=== PATIENT | male | born 1980 | race Caucasian/White ===

== ENCOUNTER 2016-05-29 18:18 | Emergency (ER) | payer MEDICAID, OTHER ==
[2016-05-29] MEDS ORDERED: Metoclopramide 10 MG/2 ML SDV IVPUSH ONE (18:54)
[2016-05-29] MEDS ORDERED: Sodium Chloride 0.9% 1,000 ML IV ONE (18:54)
[2016-05-29] MEDS ORDERED: HYDROmorphone 2 MG/ML SDV IVPUSH ONE (18:55)
[2016-05-29] MEDS ORDERED: diphenhydrAMINE 50 MG/ML SDV IVPUSH ONE (18:55)
[2016-05-29] MEDS ORDERED: Ketorolac 30 MG/ML SDV IVPUSH ONE (18:56)
[2016-05-29] MEDS ORDERED: Sodium Chloride 0.9% 10 ML Syringe FLUSH PRN (19:09)
[2016-05-29] MEDS ORDERED: Amoxicillin 500 MG Cap PO ONE (19:55)
[2016-05-29] MEDS ORDERED: Ketorolac 10 MG Tab PO ONE (19:55)
[2016-05-29] MEDS ORDERED: diphenhydrAMINE 50 MG Cap PO ONE (19:59)
[2016-05-29 20:24] VITALS: BP 122/87
--- NOTE | 2016-05-30 09:19 | CT ---
PRELIMINARY REPORT: INDICATION: Previous CVA. CT HEAD WITHOUT CONTRAST: Serial contiguous 2.5 and 5-mm sections were obtained through the brain 05/29/2016 and compared with 07/25/2015, revealing thickening of the linings of multiple ethmoidal air cells and minimally the right frontal air cell, as well as moderately the left maxillary sinus and to a milder degree the right maxillary sinus and also as well to a mild degree the left sphenoidal air cell. The findings may represent an allergic sinusitis or possibly acute sinusitis. However, no air-fluid levels were identified. Mastoid air cells appear to be fairly well aerated. No definite cranial abnormality was seen. No shift of midline structures or ventricles abnormalities were identified. No definite abnormal areas of density were identified - no bleeding site or hematoma was seen. IMPRESSION: 1. No definite acute abnormality intracranially. 2. Question sinusitis, especially frontal portion of the ethmoidal air cells. Report was called to Dr. Rosario at 1920 hours, 05/29/2016. , 1923 , [id number] FINAL REPORT: INDICATION: Previous CVA. CT HEAD WITHOUT CONTRAST: Serial contiguous 2.5 and 5-mm sections were obtained through the brain 05/29/2016 and compared with 07/25/2015, revealing thickening of the linings of multiple ethmoidal air cells and minimally the right frontal air cell, as well as moderately the left maxillary sinus and to a milder degree the right maxillary sinus and also as well to a mild degree the left sphenoidal air cell. The findings may represent an allergic sinusitis or possibly acute sinusitis. However, no air-fluid levels were identified. Mastoid air cells appear to be fairly well aerated. No definite cranial abnormality was seen. No shift of midline structures or ventricles abnormalities were identified. No bleeding site or hematoma was identified. In the posterior frontal operculum on the right, there is an indistinct area of low-density compatible with previous infarct in that area, seen on 07/25/2015 MRI and to a lesser extent CT of the same date. No extension of the abnormality in that area is identified compared with the previous MRI. No other abnormal areas of density were identified. IMPRESSION: 1. No acute intracranial abnormality. 2. Area of abnormality in the right posterior frontal operculum compatible with previous infarct diagnosed on MRI 07/25/2015. 3. Question the possibility of sinusitis, especially frontal portion of ethmoidal air cells. Report was called to Dr. Rosario at 1920 hours, 05/29/2016. Total Exam DLP = 562.87 mGy-cm. MTDD
--- NOTE | 2016-06-01 09:15 | ER ---
DATE SEEN: 05/29/2016 TIME SEEN: The patient was seen at 1824 hours. HISTORY OF PRESENT ILLNESS: [facility] called at approximately 1800 hours, stating that the patient is having a stroke and that he will be coming in for further evaluation. The patient was seen at 1824 hours, went to CT completed at 1845 hours. The following symptoms were noted: At 1100 hours, he had onset of migraine headache. He had noon dinner and then had a nap for a short period of time. He got up to watch TV. At 1600 hours, the patient had taken a shower and had a sudden onset of 8/10 headache, resulting in blurring of his left vision and left non radiating retro- orbital pain. PAST MEDICAL HISTORY: He has a past medical history on 07/25/2015, right small frontal operculum tiny MRI documented stroke without a new bleed or CT changes, but only MRI changes, and thickening of the frontal and ethmoid sinuses and was transferred to [place]. Today, he noted flashing lights in his left eye when he closed them. This occurred for a transient period of 2 to 3 seconds and then relented. In addition to that, the patient has known right facial droop, left hemiparesis, left hemisensory changes that were present since 07/25/2015. These are baseline changes and have not changed on the basis of the patient's history. The patient has known hypertension, has not been treated since October of 2015, because "he did not have any money." The patient has not used methamphetamine for a month. At that time, he was found by police with methamphetamine paraphernalia and has been sentenced to shelter for 60 days. The patient is a smoker, a pack of cigarettes per day. PAST SURGICAL HISTORY: Negative. ALLERGIES: Negative. MEDICATIONS: Negative. REVIEW OF SYSTEMS: Otherwise negative. HEENT: Poor teeth (related to methamphetamine use, which he denies, but I find the veracity of this statement is limited). NECK: No neck stiffness. CARDIAC: Negative cardiorespiratory symptoms. No chest pain or shortness of breath. He does have frequent congested cough, that is not new. No associated fever. ABDOMEN: Denies abdominal pain, diarrhea, constipation, blood in the stool, or black tarry stools. : Denies frequency, urgency, or dysuria. He denies difficulty passing urine or bladder control problems. MUSCULOSKELETAL: He has musculoskeletal weakness, hemiparesis and hemisensory dysesthesia, hypoesthesia in left upper and lower extremity, which is baseline and unchanged. NEUROLOGIC: Denies recent fall or seizures. PHYSICAL EXAMINATION: VITAL SIGNS: Blood pressure 126/86, heart rate 89, respirations 14, oxygen saturation 98%. GENERAL: Alert man, who is in marked distress. He is writhing about. He has marked sensitivity to light. Marked photophobia. Mild phonophobia. He wants the lights off. The room was darkened. HEENT: He states he has marked blurring of his left eye. Right eye is good. No change in previous baseline left hemiparesis, left sensory changes, dysesthesia. PERRLA intact. Marked sensitivity to light. Appropriate response of pupils. Hearing is good. Pharynx without abnormality. Very significant carious enamel dysplasia and disruption of his teeth. Gag in place. NECK: Supple. Nontender. No bruits in neck. LUNGS: Clear to auscultation, but has a very congested cough intermittently. HEART: S1, S2. No murmur. ABDOMEN: Soft. No guarding. No abdominal discomfort. EXTREMITIES: Without abnormality. No pedal edema. NEUROLOGIC: Abnormal, he has a right facial droop. It is mild. Mild right nasolabial fold changes. Tongue is midline. Uvula midline. Left hemiparesis. Mild pronator drift, 3 cm, left arm compared to right. Mild tremor of both hands with an essential tremor on right, slow tremor. Moderate left upper and lower extremity weakness 3+/5+, but does not drift with gravity. Moderate decreased dorsiflexion and plantar flexion strength of the left foot. Sensory testing moderate. Decreased sensation in left upper and lower extremity. IMAGING: Stat CAT scan performed, no new stroke noted. Old ischemic infarct in right frontal operculum noted by MRI of 07/25/2015, which is difficult for the radiologist to see any changes on the CT scan that occurred at that time. No new changes in the CT since then. Has mild ethmoid membrane thickening, which was also present on the ethmoid sinus on 07/25/2015. ASSESSMENT: 1. Migraine. 2. 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 3. Chronic smoker. 4. Severe dental disruption. 5. Methamphetamine abuse and use history. 6. Jailed for being apprehended with methamphetamine paraphernalia. 7. History of hypertension, but presently blood pressure is stable. 8. Mild leukocytosis with approximately 80% PMNs. Report is pending, but just quick read suggests normal INR, PTT. Abnormal complete metabolic panel, hyponatremia, decreased CO2, and elevated glucose. Mild elevated AST and ALT. FURTHER DIAGNOSES: 1. Possible mild hepatitis, etiology indeterminate, probably related to his drug abuse history. 2. Mild hyponatremia. 3. Mild neutrophilic leukocytosis. 4. Ethmoid sinusitis. PLAN: 1. The patient will be treated with Amoxil, to treat an ethmoid sinusitis 500 mg t.i.d. for 10 days. 2. The patient received in the ED Reglan 10 mg, Benadryl 50 mg, Toradol 30 mg IV, and 1000 mL normal saline stat. His headache relented to 6/10. The patient was dismissed to return to the shelter and with orders: At 0310 hours, repeat the dose of Toradol 10 mg, Reglan 10 mg, 1000 mg of Tylenol, and 50 mg Benadryl. If he is sleeping, the staff is to forego this dose, otherwise take q.6 hours the same medicines as needed for onset of migraine. 3. Follow up with the doctor in a week. 4. Treat with Amoxil 500 mg t.i.d., #20 tablets dispensed from the ED. Therefore, he will need 10 more tablets in a prescription to complete a 10- day course of Amoxil for ethmoid sinusitis. /[id number] NOLAN/CARMEN RODRIGUEZ
== END 2016-05-29 20:23 ==
LOC: FB.ED 18:18
DX: G43.909 Migraine, unspecified, not intractable, without status migrainosus (principal); H53.8 Other visual disturbances; F15.10 Other stimulant abuse, uncomplicated; I10 Essential (primary) hypertension; D72.829 Elevated white blood cell count, unspecified; F17.210 Nicotine dependence, cigarettes, uncomplicated; Z86.73 Personal history of transient ischemic attack (TIA), and cerebral infarction without residual deficits
CPT/HCPCS: 36415; 70450; 80053; 85025; 85610; 85730; 93005; 96361; 96374; 96375; 99284; A9270; J1200; J1885; J2765; J7040; J7050

== ENCOUNTER 2022-11-03 04:16 | Emergency (ER) | payer SELFPAY ==
[2022-11-03] MEDS ORDERED: LORazepam 2 MG/ML SDV ONE (04:29)
[2022-11-03] MEDS ORDERED: Sodium Chloride 0.9% 10 ML Syringe FLUSH PRN (05:20)
[2022-11-03] MEDS ORDERED: Sodium Chloride 0.9% 1,000 ML IV SCH (05:30)
[2022-11-03 05:39] LABS: HEMATOCRIT 38.8 % (38.3-50.1); MEAN CORPUSCULAR HEMOGLOBIN 29.1 pg (27.0-33.3); MEAN CORPUSCULAR HGB CONC 33.6 g/dL (28.7-35.3); MEAN CORPUSCULAR VOLUME 86.4 fL (80.8-98.7); RED BLOOD CELL COUNT 4.49 x10(6)uL (3.90-5.90); RED CELL DISTRIBUTION WIDTH 14.4 % (12.4-15.0); WHITE BLOOD CELL COUNT,WBC 8.7 x10-3/uL (3.2-10.1)
[2022-11-03 05:49] LABS: BLOOD UREA NITROGEN,BUN 14 mg/dL (7-18); BUN/CREATININE RATIO 17.5 (9-20); CALCIUM 8.6 mg/dL (8.6-10.2); CARBON DIOXIDE,CO2 29 mmol/L (21-32); CHLORIDE,CL 107 mmol/L (100-110); CREATININE 0.8 mg/dL (0.70-1.30); ESTIMATED GFR 115 mL/min (>60); GLUCOSE RANDOM 93 mg/dL (80-116); POTASSIUM,K 3.7 mmol/L (3.5-5.3); SODIUM,NA 141 mmol/L (135-145)
[2022-11-03 05:55] LABS: A/G RATIO 1.2; ALANINE AMINOTRANSFERASE,ALT 38 U/L (12-36); ALBUMIN 3.4 g/dL (3.5-5.2); ALKALINE PHOSPHATASE 104 IU/L (56-112); ASPARTATE AMNIOTRANSFERASE,AST 25 IU/L (5-25); BILIRUBIN TOTAL 0.8 mg/dL (0.1-1.3); PROTEIN TOTAL,TP 6.2 g/dL (6.0-8.0); SALICYLATE 2.2 mg/dL (<2.8)
[2022-11-03 06:02] LABS: ACETAMINOPHEN < 2 ug/mL (<2)
[2022-11-03 06:27] LABS: ETHANOL BLOOD MEDICAL < 0.03 % (<0.03); TSH ULTRASENSITIVE 0.95 IU/mL (0.36-3.74)
[2022-11-03 09:12] LABS: BILIRUBIN,URINE NEGATIVE (NEGATIVE); GLUCOSE,URINE NORMAL (NORMAL); KETONES,URINE NEGATIVE (NEGATIVE); LEUKOCYTE ESTERASE,URINE NEGATIVE (NEGATIVE); NITRITE,URINE NEGATIVE (NEGATIVE); OCCULT BLOOD,URINE NEGATIVE (NEGATIVE); PROTEIN,URINE NEGATIVE (NEGATIVE); UROBILINOGEN,URINE NORMAL (NEGATIVE)
[2022-11-03 09:19] LABS: COLOR,URINE YELLOW (YELLOW)
[2022-11-03 09:20] LABS: APPEARANCE,URINE CLEAR (CLEAR); BACTERIA,URINE FEW (NS); SQUAMOUS EPITHELIAL CELLS,UR FEW (NS,R,O); WBC,URINE 0-5 (0-5)
[2022-11-03 09:21] LABS: AMPHETAMINES SCREEN, URINE POSITIVE (NEGATIVE); BENZODIAZEPINES SCREEN,URINE POSITIVE (NEGATIVE); METHAMPHETAMINE SCREEN, URINE POSITIVE (NEGATIVE); THC SCREEN,URINE POSITIVE (NEGATIVE)
[2022-11-03] MEDS ORDERED: LORazepam 2 MG/ML SDV IVPUSH ONE (09:21)
[2022-11-03 09:22] LABS: BARBITURATE SCREEN,URINE NEGATIVE (NEGATIVE); METHADONE SCREEN, URINE NEGATIVE (NEGATIVE); OXYCODONE SCREEN,URINE NEGATIVE (NEGATIVE); PROPOXYPHENE SCREEN,URINE NEGATIVE (NEGATIVE)
[2022-11-03 09:23] LABS: BUPRENORPHINE SCREEN,URINE NEGATIVE (NEGATIVE)
[2022-11-03] MEDS ORDERED: Dextrose 5%-Lactated Ringers 1,000 ML IV SCH (09:30)
[2022-11-03] MEDS ORDERED: Dextrose 5%-Lactated Ringers 1,000 ML IV ONE (09:46)
[2022-11-03 19:39] VITALS: BP 80/56; PULSE 70
== END 2022-11-03 13:05 | disposition other institution (70) ==
LOC: FB.ED 04:16
DX: G24.9 Dystonia, unspecified (principal); F15.10 Other stimulant abuse, uncomplicated; I10 Essential (primary) hypertension; I25.2 Old myocardial infarction; Z79.899 Other long term (current) drug therapy; Z86.73 Personal history of transient ischemic attack (TIA), and cerebral infarction without residual deficits
CPT/HCPCS: 36415; 70450; 80053; 80143; 80179; 80307; 81001; 82550; 83735; 84443; 84484; 85027; 93005; 96361; 96374; 99285; J2060; J7030; J7121